=== PATIENT | male | born 1950 ===

== ENCOUNTER 2023-10-23 16:08 | Inpatient (IN) | payer MEDICARE ==
[2023-10-23] VITALS (9 sets, daily range): BP systolic 74–124; BP diastolic 52–81
[~2023-10-23] VITALS: Ht 185.4 cm; Wt 84.8 kg
--- NOTE | 2023-10-23 18:31 | NUR ---
PT ARRIVES TO ICU 14 AT 1800 DIRECT ADMIT FROM [facility]. PT IS A/O TO SELF, WILL NOT ATTEMPT GUESS AT DATE, HAS OFF THE WALL CONVERSATION. PALE. DENIES CP OR PRESSURE. ON LEVOPHED AT 8.83MCG, INCREASED TO 10MCG. RUNNING THROUGH PATENT 18G PERIPHERAL IV. PT HAS MEDIPORT TO [facility] THAT WAS DEACCESSED BEFORE LEAVING [place]. WILL ATTEMPT TO ACCESS MEDIPORT. HAS IVF TO [facility]. PT C/O "BURNING" BUTT. HAS RED EXCORIATION WITH SMALL ULCER, WOUND PHOTOS COMPLETE AND BARRIER CREAM APPLIED. INCONTINENT OF SMALL AMT OF STOOL. SCATTERED VARIOUS SCABS T/O THE REST OF BODY. HAS WHITMORE THAT WAS PLACED AT [facility]. DR. SCHAFER AT BEDSIDE AND WILL ADD ADMIT ORDERS WHEN PT IS IN THE SYSTEM. SPOKE WITH HER ABOUT TROPONINS AND IF PT NEEDS TO BE ON HEPARIN GTT. INFORMED ABOUT LEVOPHED GTT RATE WELL.
[2023-10-23 19:55] LABS: Mean Platelet Volume 10.9 fL (9.1-12.4); Platelet Count 209 K/mm3 (150-400)
[2023-10-23 20:11] LABS: Anti-Xa UFH, PHA Monitoring <0.10 IU/mL; International Normalized Ratio 1.31; Prothrombin Time Results 13.5 Sec (9.7-11.5)
[2023-10-23 20:12] LABS: Hematocrit 32.4 % (37.0-53.0); Hemoglobin 10.4 g/dL (13.5-17.5)
[2023-10-23] MEDS ORDERED: ATOR40TA PO (21:24)
[2023-10-23] MEDS ORDERED: LISI20 PO (21:24)
[2023-10-23] MEDS ORDERED: METO25 PO (21:25)
[2023-10-23] MEDS ORDERED: OXYC5 PO (21:26)
[2023-10-23] MEDS ORDERED: DOCU100 PO (21:27)
[2023-10-23] MEDS ORDERED: SENNA LAXATIVE8.6 MG PO (21:28)
[2023-10-23] MEDS ORDERED: ACET500 PO (21:30)
[2023-10-24] VITALS (56 sets, daily range): BP systolic 73–149; BP diastolic 33–109
[2023-10-24] LABS: Source, Urine Foley catheter
[2023-10-24 00:05] LABS: Bilirubin, Urine Neg (Neg); Blood, Urine 5+ (Neg); Glucose Qualitative, Urine Neg (Neg); Ketones, Urine Neg (Neg); Leukocyte Esterase, Urine Neg (Neg); Nitrite, Urine Neg (Neg); Protein, Urine 1+ (Neg); Specific Gravity, Urine 1.005 (1.003-1.022); Urobilinogen, Urine NORM (Normal)
[2023-10-24 00:24] LABS: Appearance, Urine Hazy (Clear); Color, Urine Yellow (P-Yellow)
[2023-10-24 00:27] LABS: Amorphous Light (0-Heavy); Bacteria Rare /hpf; Red Blood Cells, Urine 50-100 /hpf (0-2); Squamous Epithelial Cells Rare /hpf (Few); White Blood Cells, Urine 0-2 /hpf (0-5)
[2023-10-24 03:56] LABS: Hematocrit 30.4 % (37.0-53.0); Hemoglobin 9.7 g/dL (13.5-17.5); Mean Corpuscular HGB 27.9 pg (26.0-34.0); Mean Corpuscular HGB Conc 31.9 g/dL (31.5-36.5); Mean Corpuscular Volume 87 fL (80-100); Mean Platelet Volume 10.6 fL (9.1-12.4); Platelet Count 192 K/mm3 (150-400); RDW Coefficient Variation 13.4 % (11.7-14.2); RDW Standard Deviation 42.8 fL (35.1-46.3); Red Blood Cell Count 3.48 M/mm3 (4.30-5.90)
[2023-10-24 04:20] LABS: Albumin/Globulin Ratio 0.6 (0.8-1.8); Bilirubin, Total 0.5 mg/dL (0.1-1.0); Bun/Creatinine Ratio 16.1 (12.0-20.0); Calcium, Blood 7.3 mg/dL (8.5-10.1); Creatinine, Blood 1.12 mg/dL (0.60-1.20); Globulin, Blood 3.4 g/dL (2.2-4.0); Magnesium, Blood 1.7 mg/dL (1.6-2.4); Potassium, Blood 3.8 mmol/L (3.5-5.5); Total Protein, Blood 5.4 g/dL (6.4-8.2)
[2023-10-24 04:23] LABS: BAND PERCENT MAN 19 % (0-8); BASOPHILS PERCENT MAN 0 % (0-2); EOSINOPHILS PERCENT MAN 0 % (0-6); LYMPHOCYTES ABSOLUTE MAN 0.19 K/mm3 (0.84-5.20); LYMPHOCYTES PERCENT MAN 1 % (21-46); METAMYELOCYTE ABSOLUTE MAN 0.19 K/mm3 (0.00-0.00); METAMYELOCYTE PERCENT MAN 1 % (0-0); MONOCYTES PERCENT MAN 0 % (4-13); MYELOCYTE ABSOLUTE MAN 0.19 K/mm3 (0.00-0.00); MYELOCYTE PERCENT MAN 1 % (0-0); NEUTROPHILS ABSOLUTE MAN 18.52 K/mm3 (1.96-9.15); SEG NEUTROPHILS PERCENT MAN 78 % (41-73); TOTAL CELLS COUNTED 100
--- NOTE | 2023-10-24 04:58 | NUR ---
END OF SHIFT SUMMARY PT A/O X4. EARLY THIS MORNING PT WOKE UP AND IS CONVERSING APPROPRIATELY. PT SISTER CALLUM CORONEL WAS SPOKEN TO BY THIS RN LAST EVENING 1999, SHE WOULD LIKE TO BE UPDATED ON PT CONDITION THIS AM AFTER 8AM. PT REPORTS HE IS NOT SURE IF HE IS GETTING REDIATION THERAPY OR CHEMO THERAPY THROUGH IV. HE DOES NOT REMEMBER ANY VISITS BY EMS OR HOW HE HAD BEEN TRANSPORTED TO [facility]. CARDIAC- LEVOPHED RUNNING AT 5 MCG WITH MAP >65. 1 ATTEMPT TO TITRATE OFF WAS UNSUCCESSFUL WITH MAP IN MID 50'S RESULTING. DENIES C/O CHEST PAIN/SOB. TROP TRENDING DOWN AT THIS TIME. HR 80'S. RESP- OXYGEN DC'D APPROX 0300. SPO2 REMAINS >92% WITHOUT SUPPLEMENTION. NON PRODUCTIVE DRY COUGH OCCASIONALLY. GI,- PT HAS URGE TO DEFICATE WITHOUT SUCCESS, REPORT FROM [facility]- LARGE BOWEL MOVEMENT 10/23/23 BEFORE NOON. PT IS ABLE TO DRINK WATER WITHOUT DIFFICULTY. NO APPETITE FOR FOOD AT THIS POINT. WHITMORE CATHETER PRESENT UPON ADMISSION. CATHETER REPLACED AND URINE SAMPLE SENT. [employer]TEG- PT COMPLAINING OF HIS BUTTOCKS BEING PAINFUL. PICS IN CHART OF REDDENED AREA PRESENT UPON ADIMISSION. IV ACCESS- PORT LOCATED ON UPPER LEFT TOLBERT AREA, PATENT AND INFUSING HEPARIN AT THIS TIME. 2X 20G IN BILAT UPPER AC AREAS, PATENT BUT DOES NOT DRAW BACK. LR AT 200 MLS/HR BELONGINGS WITH PT UPON ARRIVAL- I-PHONE AND EYE GLASSES. WILL CONTINUE TO MONITOR UNTIL REPORT GIVEN TO AM RN
--- NOTE | 2023-10-24 11:47 | NUR ---
SPOKE WITH LAB ABOUT ANTI XA LAB THAT WAS DRAWN AT 1000, THEY ARE HAVING DIFFICULTIES WITH THE MACHINE GETTING IT RESULTED. PHARMACY AWARE.
--- NOTE | 2023-10-24 18:32 | NUR ---
SUMMARY PT A/O TO SELF AND HOSPITAL MOST OF THE DAY. ON LEVOPHED GTT. IF MAP IS BELOW 60 MENTATION DECREASES AND HAS CONFUSED CONVERSATION. REMAINS ON HEPARIN GTT. PT IS INCONTINENT OF STOOL. HAD A SCANT AMT OF BLOOD IN STOOL TODAY BUT IT WAS GELATINOUS AND DID NOT CONTINUE. PT HAS HISTORY OF COLORECTAL CA THAT HE IS BEING TREATED FOR. PT IS POOR HISTORIAN. SITTING IN BED ON PHONE NOW, NO SIGN OF DISTRESS.
--- NOTE | 2023-10-24 21:33 | NUR ---
WHITMORE CATHETER TAKEN OUT AT THIS TIME. PT REQUESTED TO USE A "DIAPER". WHEN ASKED IF PT IS ABLE TO USE URINAL OR TOILET PT STATES "I USE DIAPERS AT HOME FOR CONVENIENCE". PT INFORMED THAT BRIEF WOULD BE INAPPROPRIATE FOR USE IF PT IS ABLE TO USE URINAL, BED GRAVES, OR TOILET IF ABLE TO BE MOBILE. PT IS NOT INCONTINENT AT THIS TIME.
[2023-10-25] VITALS (36 sets, daily range): BP systolic 91–119; BP diastolic 55–81
[2023-10-25 03:48] LABS: Hematocrit 26.6 % (37.0-53.0); Hemoglobin 8.6 g/dL (13.5-17.5); Mean Corpuscular HGB 28.2 pg (26.0-34.0); Mean Corpuscular HGB Conc 32.3 g/dL (31.5-36.5); Mean Corpuscular Volume 87 fL (80-100); Mean Platelet Volume 11.3 fL (9.1-12.4); Platelet Count 135 K/mm3 (150-400); RDW Coefficient Variation 13.5 % (11.7-14.2); RDW Standard Deviation 42.7 fL (35.1-46.3); Red Blood Cell Count 3.05 M/mm3 (4.30-5.90); White Blood Cell Count 13.44 K/mm3 (4.00-11.30)
[2023-10-25 04:11] LABS: Albumin, Blood 1.9 g/dL (3.4-5.0); Albumin/Globulin Ratio 0.6 (0.8-1.8); Bilirubin, Total 0.4 mg/dL (0.1-1.0); Bun/Creatinine Ratio 18.9 (12.0-20.0); Calcium, Blood 7.5 mg/dL (8.5-10.1); Creatinine, Blood 0.9 mg/dL (0.60-1.20); Globulin, Blood 3.1 g/dL (2.2-4.0); Potassium, Blood 3.5 mmol/L (3.5-5.5)
--- NOTE | 2023-10-25 04:44 | NUR ---
A/O X4 COOPERATIVE WITH CARE MOST OF THE SHIFT. ENCOURAGEMENT GIVEN THROUGHOUT SHIFT TO DO ADL'S ON HIS OWN DUE TO PT CAPABILITY TO DO THEM. LEVOPHED ON SB SINCE 10/24 AT 2200. MAP >65 WITH NO ISSUES. SR WITH HR 80'S. TEMP STABLE-AFEBRILE THIS SHIFT. RA WITH SPO2 >93% HEPARIN RUNNING AT 17 UNITS AT THIS TIME. SLIGHT BLEEDING FROM ANAL AREA- PREVIOUS SHIFT STATED THAT THE AREA HAD BEEN SLIGHTLY TRAUMATIZED DUE TO RECTAL TUBE INSERTION AND TAKEN OUT IN SHORT PERIOD OF TIME. BLEED WAS MINIMAL WITH VERY SMALL FECAL MATTER DURING FLATULANCE AND RED IN COLOR.
[2023-10-25 05:04] LABS: BAND PERCENT MAN 15 % (0-8); BASOPHILS PERCENT MAN 0 % (0-2); EOSINOPHILS PERCENT MAN 0 % (0-6); LYMPHOCYTES PERCENT MAN 3 % (21-46); MONOCYTES ABSOLUTE MAN 0.13 K/mm3 (0.16-1.47); MONOCYTES PERCENT MAN 1 % (4-13); SEG NEUTROPHILS PERCENT MAN 81 % (41-73); TOTAL CELLS COUNTED 100
--- NOTE | 2023-10-25 12:27 | NUR ---
AM NOTE: PT ALERT AND ORIENTED TO SELF AND PERSON ONLY, UNABLE TO ANSWER WHERE HE'S AT AND CANT TELL TIME AND DATE. 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 PT WAS CONFUSED UPON SHIFT CHANGE PT GOT OUT OF BED PULLED IV/MEDIPORT LINES OFF, COMPLETELY NAKED. PT STATED " I JUST FEEL LIKE I NEEDED TO GET UP" "IM SICK OF THIS". PT WAS REDIRECTABLE BUT WILL TAKE TIME TO PROCESS. PT GOT SITUATED UP IN HE RECLINER WITH CHAIR ALARM ON PT STARTED C/O CHILLS TEMP WAS FINE ORAL AND TEMPORAL 98.[address] 90-110'S, SBP 120'S STARTED BECOMING SOFT 90-100'S WHEN PT GOT SITUATED BACK TO BED, MEDIPORT WAS REACCESSED, SATS ABOVE 90% ON RA. CALLED DR SCHAFER ORDERED CT OF THE ABDOMEN. RESULTS SHOWS POCKETING OF INFECTION AND GAS IN THE PERINEUM, DR GONZALEZ WAS CONSULTED SAW PT BEFORE LUNCH TIME, PLAN TO TAKE PT IN FOR I&D, TINO SISTER CALLED AND WAS GIEVN UPDATE REGARDING PT'S STATUS. PT KEPT NPO AT THIS TIME. STARTED ON VANCO, 40MEQ DOSE OF POTASSIUM TO GIVE PT HAD 9 BEATS RUN OF ASYMPTOMATIC VTACH DR SCHAFER MADE AWARE. PT AWAITNG FOR PROCEDURE AT THIS TIME. WILL CONTINUE TO MONITOR
--- NOTE | 2023-10-25 15:29 | NUR ---
PT CAME BACK TO THE ROOM FROM OR i&D WAS DONE IN THE PERIANAL AREA, DALI DRAIN IN PLACE GAUZE AND ABD PADS ON FOR DRESSING. PT STILL ASLEEP. VITALS HRR SR 90'S, SBP 90-100'S MAP >65, SATS ABOVE 93% ON 4L OF O2, AFEBRILE. LR REMAINS RUNNING AT 200MLS/HR. WILL CONTINUE TO MONITOR
--- NOTE | 2023-10-25 17:29 | NUR ---
PT SUMMARY: SEE PREVIOUS NOTES: PT WOKE UP POST PROCEDURE PT HAD AN INOCONTINENT VOID WHILE THIS RN IS BLADDER SCANNING THE PT, BLADDER SCAN SHOWED [address] SCHAFER CAME IN TO SEE THE PT AND AWARE OF PT'S CURRENT STATUS. LR NOW RUNNING AT 125MLS/HR. VITALS REMAINED SOFT SBP'S 90-100'S WITH MAP >65, SATS ABOVE 90% ON 2L OF O2,, HRR SR 70'S, AFEBRILE. PT WENT BACK TO SLEEP AFTER BED BATH WAS COMPLETED. ABD PADS CHANGED ON THE PERINEUM, DALI DRAIN INTACT, HAS SOME BLOODY DISCHARGE ON THE DRESSINGS. SISTER CALLUM WAS CALLED AND WAS GIVEN UPDATE REGARDING PT POST PROCEDURE. STATUS CHANGED BACK TO ICU TO CLOSELY MONITOR PT OVER THE NIGHT. DIET RESUMED PT STARTED ON [facility] SOFT DIET DUE TO MISSING TEETH AND LOOSE FRONT LOWER INCISOR TOOTH, DENTAL HYGIENIST CONSULTED. PT RESTING IN BED AT THIS TIME, CALL LIGHTS IN REACH WILL REPORT TO ONCOMING SHIFT
--- NOTE | 2023-10-25 20:11 | NUR ---
ASSUMED CARE OF PT AT 1900 PT RESTING IN BED WITH DINNER TRAY DURING BEDSIDE SHIFT REPORT. VITALS WNL AT THIS TIME. SEE FULL ASSESSMENT FOR FURTHER INFORMATION.
[2023-10-26] VITALS (11 sets, daily range): BP systolic 89–108; BP diastolic 64–88
--- NOTE | 2023-10-26 02:20 | NUR ---
PT PULLING OFF OXYGEN, BP CUFF AND O2 PROBE. REFUSING TO WEAR THEM. NOT ANSWERING QUESTIONS APPROPRIATELY AT THIS TIME.
[2023-10-26 03:47] LABS: Hematocrit 25.5 % (37.0-53.0); Hemoglobin 8.3 g/dL (13.5-17.5); Mean Corpuscular HGB Conc 32.5 g/dL (31.5-36.5); Mean Corpuscular Volume 86 fL (80-100); Mean Platelet Volume 11.3 fL (9.1-12.4); Platelet Count 96 K/mm3 (150-400); RDW Coefficient Variation 13.9 % (11.7-14.2); RDW Standard Deviation 44.1 fL (35.1-46.3); Red Blood Cell Count 2.96 M/mm3 (4.30-5.90); White Blood Cell Count 5.89 K/mm3 (4.00-11.30)
[2023-10-26 04:07] LABS: Albumin, Blood 1.8 g/dL (3.4-5.0); Albumin/Globulin Ratio 0.6 (0.8-1.8); Bilirubin, Total 0.3 mg/dL (0.1-1.0); Bun/Creatinine Ratio 32.7 (12.0-20.0); Calcium, Blood 7.5 mg/dL (8.5-10.1); Creatinine, Blood 0.73 mg/dL (0.60-1.20); Globulin, Blood 3.2 g/dL (2.2-4.0); Potassium, Blood 4.3 mmol/L (3.5-5.5)
[2023-10-26 05:09] LABS: BAND PERCENT MAN 8 % (0-8); BASOPHILS PERCENT MAN 0 % (0-2); EOSINOPHILS PERCENT MAN 0 % (0-6); LYMPHOCYTES ABSOLUTE MAN 0.17 K/mm3 (0.84-5.20); LYMPHOCYTES PERCENT MAN 3 % (21-46); MONOCYTES ABSOLUTE MAN 0.23 K/mm3 (0.16-1.47); MONOCYTES PERCENT MAN 4 % (4-13); NEUTROPHILS ABSOLUTE MAN 5.47 K/mm3 (1.96-9.15); SEG NEUTROPHILS PERCENT MAN 85 % (41-73); TOTAL CELLS COUNTED 100
--- NOTE | 2023-10-26 06:19 | NUR ---
END OF SHIFT SUMMARY PT A/O X2 THIS SHIFT. PT GETS CONFUSED OF WHERE HE IS AT AND WHY HE IS AT THE HOSPITAL. PT PULLS AT LINES AND CORDS MULTIPLE TIMES THIS SHIFT. REFUSES TO WEAR SPO2 PROBE. DOES NOT FOLLOW COMMANDS. SLEEPS BETWEEN CONFUSION EPISODES. DENIES CP/SOB, DENIES PAIN. VITALS STABLE AND WNL THROUGHOUT SHIFT. UNABLE TO ASSESS SURGICAL AREA D/T PATIENT COMPLIANCE AND THE LOCATION OF THE SURGICAL SIGHT. PT WAS ABLE TO USE URINAL AFTER MANY ATTEMPTS THROUGHOUT SHIFT. APPROX 600 MLS MID SHIFT. DUE TO CONFUSION PT GETS UPSET AND DOES NOT FOLLOW COMMANDS WHEN PROMPTED TO URINATE.
--- NOTE | 2023-10-26 08:16 | NUR ---
ASSUMED CARE PT AWAKE AND ALERT. PT NOT MAKING EYE CONTACT. PT ABLE TO STATE HIS NAME AND . WHEN ASKED IF PT KNEW HIS LOCATION, PT STATED HE "DON'T KNOW AND DON'T CARE". PT UPSET THAT THIS RN AND DOCUMENT SPECIALIST WANTED TO BOOST PATIENT IN BED TO EAT BREAKFAST. PT REFUSED TO KEEP SPO2 MONITOR ON, BUT WHEN SPOT CHECKED SATS >90% ON RA. BP STABLE. PT ATTEMPTING TO PULL OFF CUFF WHILE IT IS INFLATING. PT HOSTILE WHEN STAFF ATTEMPTS TO PROVIDE CARE. THIS RN ATTEMPTED TO ASSESS DALI DRAIN TO PERINEUM, BUT PT REFUSED. PT EDUCATED ON NEED TO ASSESS AND CHANGE DRESSING IF SOILED, BUT CONTINUES TO REFUSE. PT REPOSITIONING HIMSELF IN BED. WILL CONTINUE TO MONITOR CLOSELY
--- NOTE | 2023-10-26 11:11 | NUR ---
UPDATE PT MORE COOPERATIVE WITH CARE AT THIS TIME. PT AGREEABLE TO ALLOW THIS RN TO ASSESS DRAIN. ATTENDS SOAKED WITH URINE. PT PROVIDED PARTIAL BEDBATH AND LINEN CHANGED. ABD PAD UNDER DRAIN SOAKED IN SEROSANGUINEOUS FLUID. WOUND CLEANED AND NEW ABD PAD PLACED. PT REPORTS NOT ALWAYS BEING AWARE OF WHEN HE NEEDS TO VOID OR HAVE A BM. WILL CONTINUE TO MONITOR CLOSELY
--- NOTE | 2023-10-26 14:04 | NUR ---
10/26/23 1404 Jaymie Gunter VERIFICATIONS: EDIT CHART.
--- NOTE | 2023-10-26 16:20 | NUR ---
UPDATE STATUS CHANGED TO MEDICAL. REPORT GIVEN TO DAGOBERTO KIRKLAND. PT TAKEN UPSTAIRS WITH ALL OF HIS BELONGINGS. WILL CALL SISTER AND UPDATE HER.
--- NOTE | 2023-10-26 16:28 | NUR ---
TRANSFER TO [facility]. PT ORIENTED TO ROOM. CALL LIGHT IN REACH. DENIES PAIN AT THIS TIME. BEVERAGE PROVIDED. NO FURTHER NEEDS AT THIS TIME.
--- NOTE | 2023-10-26 18:08 | NUR ---
SHIFT SUMMARY PT TRANSFERED FROM ICU THIS SHIFT. NO ACUTE CHANGES IN ASSESSMENT FROM PREVIOUS RNS ASSESSMENT. TELE IN PLACE. RUNNING NSR IN THE 60S. MEDIPORT ORDER OBTAINED FROM DR. SCHAFER. CURRENTLY RUNNING LR AT 125ML/HR. PT ORIENTED TO ROOM. CALL LIGHT IN REACH. BED ALARM IN PLACE. DENIES OTHER NEEDS AT THIS TIME. VS REVIEWED.
[2023-10-26] MEDS ORDERED: MIRALAX1714 PO (19:50)
[2023-10-26 22:54] LABS: Vancomycin, Trough 18.5 ug/mL (5.0-10.0)
[2023-10-27 05:07] VITALS: BP 112/75
--- NOTE | 2023-10-27 05:19 | NUR ---
SHIFT SUMMARY PATIENT A/Ox3, FORGETFUL, BRIGHT AFFECT, TALKATIVE, NO OVERT CONFUSION. DENIES PAIN/DISCOMFORT. ALLOWED THIS RN TO CHANGE ATTENDS AND CLEANSE DESTINY AREA. PERINEAL DRAIN IN PLACE, SEROSANGUINOUS DRAINAGE, ABD PAD PLACED. MILD ODOR, MORE SO R/T URINARY INCONTINENCE. NO ACUTE CHANGES NOTED OVERNIGHT. BED LOCKED, CALL LIGHT IN REACH.
[2023-10-27 07:14] VITALS: BP 113/76
[2023-10-27 15:27] VITALS: BP 118/72
--- NOTE | 2023-10-27 15:43 | NUR ---
PHYSICIAN CONTACT-MENTATION CHANGES DR. SCHAFER NOTIFIED OF SIGNIFICANT MENTATION CHANGES FROM THIS AM. PT ORIENTED TO SELF ONLY. UNABLE TO FOLLOW EVEN SIMPLE DIRECTIONS, LIKE TO CLOSE HIS MOUTH FOR AN ORAL TEMP. PT COMBATIVE DURING LAST BREIF CHANGE AND THREATENTING TO HIT STAFF. DR. SCHAFER IN TO ASSESS PATIENT AND DRAIN SITE. PLAN TO REPEAT BLOOD CULTURES PER DR. SCHAFER.
--- NOTE | 2023-10-27 17:00 | NUR ---
INCREASE IN AGITATION PT INCREASED IN AGITATION SINCE LAST NOTE. PULLING OFF TELE AND PULLING ON MEDIPORT LINE. PT NON-DIRECTABLE AT THIS TIME. WRIST RESTRAINTS APPLIED AN ORDER FOR QUINNL OBTAINED FROM DR. SCHAFER.
--- NOTE | 2023-10-27 17:27 | NUR ---
SHIFT SUMMARY SEE PREVIOUS NOTES. PT AGITATION/CONFUSION INCREASING THE SHIFT HAS GONE ON. DR. SCHAFER NOTIFIED. REPEAT BLOOD CULTURES COLLECTED. PT UNABLE TO BE REORIENTED, CALLING STAFF NAMES AND USING MANY CURSE WORDS. THIS IS EXTREMELY DIFFERENT FROM YESTERDAY WHEN HE WAS TRANSFERED TO THE FLOOR. PT NOW IN WRIST RESTRAINTS TO PROTECT MEDIPORT. TELE DCED PER MD. LR RUNNING 125 ML/HR. PT REFUSED MEALS TO DAY AND ONLY DRANK A SMALL AMOUNT OF A VANILLA ENSURE TODAY. VOIDING LARGE VOLUMES INCONTINENTLY. AGITATED WHEN BEING CHANGED. HALDOL GIVEN ORDERED TO HELP WITH BEHAVIOR, SO THAT THE PT CAN BE CHANGED. DRAIN TO PERNEAL AREA DRAINING SMALL/MODERATE AMOUNTS OF SERISANGUANOUS FLUIDS AND SOME CLOTS. TEMP PEAKED AT 100.4 TODAY. BACK DOWN TO 99.0. PT REFUSING TYLENOL AT THIS TIME. NO OTHER ACUTE CHANGES IN ASSESSMENT AT THIS TIME. VS REVIEWED. CALL LIGHT IN REACH.
--- NOTE | 2023-10-27 18:26 | NUR ---
PHYSICIAN CONTACT PT CALLING OUT INTO [facility]WAYS. YELLING OUT "FUCK YOU GUYS". OTHER PATIENTS COMING OUT OF THIER ROOMS TO CHECK ON THE PT. PT UNABLE TO BE REDIRECTED AND EXTREMELY CONFUSED. DR. SCHAFER NOTIFIED. ORDER FOR ZYPREXA 10MG IM NOW OBTAINED. AWAITING PHARMACY VERIFICATION.
[2023-10-27 18:45] LABS: Influenza A, PCR NEGATIVE (NEGATIVE); Influenza B, PCR NEGATIVE (NEGATIVE); Resp Syncytial Virus, PCR NEGATIVE (NEGATIVE); SARS-Cov-2 (COVID-19) PCR, MMC NEGATIVE (NEGATIVE)
[2023-10-27 20:05] VITALS: BP 121/67
[2023-10-27 23:09] LABS: Vancomycin, Trough 22.9 ug/mL (5.0-10.0)
[2023-10-28 03:27] VITALS: BP 135/83
[2023-10-28 06:03] LABS: BASOPHILS ABSOLUTE AUTO 0.01 K/mm3 (0.00-0.23); BASOPHILS PERCENT AUTO 0 % (0-2); EOSINOPHILS PERCENT AUTO 5 % (0-6); Hematocrit 26.1 % (37.0-53.0); Hemoglobin 8.5 g/dL (13.5-17.5); IMMATURE GRAN ABSOLUTE AUTO 0.06 K/mm3 (0.00-0.10); IMMATURE GRAN PERCENT AUTO 1 % (0-1); LYMPHOCYTES ABSOLUTE AUTO 0.57 K/mm3 (0.84-5.20); LYMPHOCYTES PERCENT AUTO 9 % (21-46); MONOCYTES ABSOLUTE AUTO 0.28 K/mm3 (0.16-1.47); MONOCYTES PERCENT AUTO 5 % (4-13); Mean Corpuscular HGB 27.7 pg (26.0-34.0); Mean Corpuscular HGB Conc 32.6 g/dL (31.5-36.5); Mean Corpuscular Volume 85 fL (80-100); Mean Platelet Volume 12.1 fL (9.1-12.4); NEUTROPHILS ABSOLUTE AUTO 5.02 K/mm3 (1.96-9.15); NEUTROPHILS PERCENT AUTO 80 % (41-73); Platelet Count 105 K/mm3 (150-400); RDW Coefficient Variation 13.9 % (11.7-14.2); RDW Standard Deviation 42.5 fL (35.1-46.3); Red Blood Cell Count 3.07 M/mm3 (4.30-5.90); White Blood Cell Count 6.24 K/mm3 (4.00-11.30)
[2023-10-28 06:18] LABS: Bun/Creatinine Ratio 23.5 (12.0-20.0); Creatinine, Blood 0.89 mg/dL (0.60-1.20); Potassium, Blood 3.7 mmol/L (3.5-5.5)
--- NOTE | 2023-10-28 06:55 | NUR ---
SHIFT SUMMARY PT TRANSFERRED FROM ROOM 312- REPORT FROM DAGOBERTO KIRKLAND - PT BROUGHT VIA ALEM, SOFT RESTRAINTS IN PLACE TO [place] UE- PT MEDICATED X 2 WITH HALDOL FOR YELLING AND CUSSING AT STAFF- PT REMOVED MEDIPORT ACCESS - PT GOT ONE OF HIS WRIST OUT OF RETRAINTS- REACESSED MEDIPORT- PT TOLERATED WELL - APPLIED CONDOM CATH -FIRST ONE FELL OFF - REAPPLIED WILL MONITOR- CALL TO DR. KEARNS - CONCERNED OF NO CT SCAN ORDERED AND CHANGE OF MENTATION- ORDER FOR ZYPREXA GIVEN CT ORDERED- PT TO CT- PT RETUNED VIA ALEM- REPORT TO VINNIE KIRKLAND
[2023-10-28 07:38] VITALS: BP 146/84
[2023-10-28 11:50] LABS: HEP-IND THROMBOCYTOPEN PF4,IGG 0.085 OD (<=0.399)
[2023-10-28 14:28] VITALS: BP 142/88
--- NOTE | 2023-10-28 19:07 | NUR ---
SUMMARY- PT ALERT TO SELF ONLY. PT WAS AGRESSIVE AND UPSET THIS AM, CURSING THE STAFF, RESTLESS AND UPSET 0930. MEDICATED WITH HALDOL AND PT CALMED. PT COMPLAINED OF PAIN IN BUTTOCK, LEGS. MEDICATED WITH NORCO 5MG 1- 2X TODAY. CLEANSED DALI DRAIN WITH IODINE 1/2 STRENGTH, DRAINING MOD AMOUNT SEROSANG/ USING CONDOM CATH FOR INCONT, KEEPING THE INCISION CLEAN AND DRY. PT BECAME PROGRESSIVELY MORE COOPERATIVE THE DAY WENT ON, RESTRAINTS DC'D 1600. PT DIRECTABLE AND COMPLIANT. NOT ATTEMTING TO PULL AT LINES. HAS D51/2 NS AT 100ML HR. TAKING IN SMALL AMOUNTS OF LIQUID WHEN OFFERED, AND PILLS CRUSHED. PT ASSISTED IN TURNS ROUTINE. REPOETED ALL TO NOC RN
[2023-10-28 20:25] VITALS: BP 145/79
[2023-10-29 05:19] VITALS: BP 133/78
[2023-10-29 05:19] LABS: BASOPHILS ABSOLUTE AUTO 0.01 K/mm3 (0.00-0.23); BASOPHILS PERCENT AUTO 0 % (0-2); EOSINOPHILS ABSOLUTE AUTO 0.29 K/mm3 (0.00-0.68); EOSINOPHILS PERCENT AUTO 7 % (0-6); Hematocrit 26.5 % (37.0-53.0); Hemoglobin 8.5 g/dL (13.5-17.5); IMMATURE GRAN ABSOLUTE AUTO 0.03 K/mm3 (0.00-0.10); IMMATURE GRAN PERCENT AUTO 1 % (0-1); LYMPHOCYTES ABSOLUTE AUTO 0.65 K/mm3 (0.84-5.20); LYMPHOCYTES PERCENT AUTO 16 % (21-46); MONOCYTES ABSOLUTE AUTO 0.38 K/mm3 (0.16-1.47); MONOCYTES PERCENT AUTO 10 % (4-13); Mean Corpuscular HGB 27.6 pg (26.0-34.0); Mean Corpuscular HGB Conc 32.1 g/dL (31.5-36.5); Mean Corpuscular Volume 86 fL (80-100); Mean Platelet Volume 12.1 fL (9.1-12.4); NEUTROPHILS ABSOLUTE AUTO 2.63 K/mm3 (1.96-9.15); NEUTROPHILS PERCENT AUTO 66 % (41-73); Platelet Count 101 K/mm3 (150-400); RDW Coefficient Variation 13.9 % (11.7-14.2); RDW Standard Deviation 43.4 fL (35.1-46.3); Red Blood Cell Count 3.08 M/mm3 (4.30-5.90); White Blood Cell Count 3.99 K/mm3 (4.00-11.30)
--- NOTE | 2023-10-29 06:02 | NUR ---
SHIFT SUMMARY PT LAYING IN BED DURING REPORT FROM VINNIE KIRKLAND, IV INFUSING WITH D5 1/2NS IN TO THE MEDIPORT- CALL TO PHARMACY- JAYCOB AND CUAUHTEMOC COMPATIBLE WITH MAINTANCE FLUIDS- PT REPORTED BACK PAIN DURING REPOSITIONING- PT TOOK SCHEDULED MEDS WITH ENSURE, PT SWALLOWED WITHOUT PROBLEMS, CLENSED AROUND PINROSE DRAIN, SMALL AMOUNT OF SEROUSANGIOUS DRAINAGE IN BRIEF WITH EACH CHANGING- T-GAUZE APPLIED, CONDOM CATH OFF PT, REAPLLIED CONDOM CATH- PT TOLERATED WELL, PT SLEPT T/O NIGHT- PT MENTATION CLEARER COMPARED TO PREVIOUS HS SHIFT, BED LOW POSITION, CALL LIGHT WITHIN REACH
[2023-10-29 06:25] LABS: Bun/Creatinine Ratio 16.9 (12.0-20.0); Creatinine, Blood 0.83 mg/dL (0.60-1.20); Potassium, Blood 3.5 mmol/L (3.5-5.5)
[2023-10-29 07:29] VITALS: BP 136/82
[2023-10-29] MEDS ORDERED: AMOCLA875 PO (13:16)
[2023-10-29] MEDS ORDERED: VISBIOME 112.51 EACH PO (13:16)
--- NOTE | 2023-10-29 16:19 | NUR ---
PT DISCHARGED THE PT VERBALIZED UNDERSTANDING OF DC INSTRUCTIONS. PT WAS MORE PLEASANT KNOWNING THAT HE WAS GOING HOME. THE PT WAS DRESSED IN PAPER SCRUBS. PT HAS A DALI DRAIN INTACT. THE PT WAS TRANSFERED VIA WHEELCHAIR ACCOMPANIED BY THE STOCK BUYER TO MEET A TAXI AT THE FRONT
== END 2023-10-29 14:00 | disposition home health service (06) | DRG 871 ==
LOC: PCU 16:08 → ICUE 16:20 → MEDS 10-26 16:20 → ENPENDDIS 10-29 14:07
PROVIDERS: Surgery; ADMIT Internal Medicine
PROC: 3E033XZ Introduction of Vasopressor into Peripheral Vein, Percutaneous Approach (ICD-10-PCS; 2023-10-23)
PROC: 3E03329 Introduction of Other Anti-infective into Peripheral Vein, Percutaneous Approach (ICD-10-PCS; 2023-10-23)
PROC: 0W9M0ZZ Drainage of Male Perineum, Open Approach (ICD-10-PCS; principal; 2023-10-25 12:00)
DX: A41.9 Sepsis, unspecified organism (principal); G93.41 Metabolic encephalopathy; R65.21 Severe sepsis with septic shock; I21.A1 Myocardial infarction type 2; L02.215 Cutaneous abscess of perineum; C21.0 Malignant neoplasm of anus, unspecified; I69.354 Hemiplegia and hemiparesis following cerebral infarction affecting left non-dominant side; D84.821 Immunodeficiency due to drugs; E87.0 Hyperosmolality and hypernatremia; F01.518 Vascular dementia, unspecified severity, with other behavioral disturbance; N17.9 Acute kidney failure, unspecified; I10 Essential (primary) hypertension; G89.29 Other chronic pain; M54.9 Dorsalgia, unspecified; T45.1X5A Adverse effect of antineoplastic and immunosuppressive drugs, initial encounter; Z87.891 Personal history of nicotine dependence; Z79.891 Long term (current) use of opiate analgesic; Z11.52 Encounter for screening for COVID-19
CPT/HCPCS: 0241U; 36415; 51702; 70450; 74177; 80048; 80053; 80202; 81001; 82565; 83605; 83735; 84145; 84295; 84443; 84484; 85014; 85018; 85025; 85049; 85520; 85610; 85730; 86022; 87040; 93306; 94762; 97162; 97166; 97530; 97535; A9270; C9113; J1630; J1642; J1644; J2543; J2704; J3010; J3370; J3480; J7042; J7050; J7060; J7120; Q9967